=== PATIENT | female | born 1990 | race Caucasian/White ===

== ENCOUNTER 2019-08-04 14:13 | Emergency (ER) | payer OTHER ==
[~2019-08-04] VITALS: Ht 167.6 cm; Wt 113.4 kg
--- OUTSIDE RECORDS SUMMARY | 2019-08-05 18:14 | XMS ---
PreManage Notification: ALEXANDRE GARCIA Security Stogy Roller Events No recent Security Events currently on file CRITERIA MET - [facility] Has Care Guidelines CARE PROVIDERS There are no care providers on record at this time. Guidelines Source: [email or web address] [place] Guidelines Date: 12/28/2018 Care Coordination: Mental health services provided by [email or web address].\T\nbsp; Please contact [email or web address] with mental health concerns.\T\nbsp; [facility] [phone]\T\ nbsp; Cash: [phone]. E.D. VISIT COUNT (12 MO.) 1 [facility] 1 [facility] TOTAL 2 NOTE: Visits indicate total known visits. ED/UCC VISIT TRACKING (12 MO.) 08/04/2019 14:14 [facility] Arevalo TYPE: Emergency COMPLAINT: - M[facility]2019 [facility] DIAGNOSES: - Facial Swelling - confusion, facial swelling - Cutaneous abscess of face INPATIENT VISIT TRACKING (12 MO.) [facility] DIAGNOSES: - Bipolar disorder, currently in remission, most recent episode - Synovitis and tenosynovitis, unspecified - Pain in left finger(s) - Elevated white blood cell count, unspecified [email or web address]
== END 2019-08-05 18:05 ==
LOC: ED 14:13
DX: F23 Brief psychotic disorder (principal); F19.10 Other psychoactive substance abuse, uncomplicated; F25.9 Schizoaffective disorder, unspecified
CPT/HCPCS: 80053; 80176; 81001; 84443; 84703; 85025; 99285; G0480; Q0163; U0002

== ENCOUNTER 2020-11-15 22:11 | Emergency (ER) | payer OTHER ==
[~2020-11-15] VITALS: Ht 167.6 cm; Wt 113.4 kg
[2020-11-15] MEDS ORDERED: OLANZAPINE2.5 MG PO (23:38)
[2020-11-15] MEDS ORDERED: PRAZOSIN HCL1 MG PO (23:38)
[2020-11-15] MEDS ORDERED: SERTRALINE HCL100 MG PO (23:39)
== END 2020-11-16 03:47 | disposition home or self-care (01) ==
LOC: ED 22:11
DX: S63.613A Unspecified sprain of left middle finger, initial encounter (principal); W23.0XXA Caught, crushed, jammed, or pinched between moving objects, initial encounter; F17.200 Nicotine dependence, unspecified, uncomplicated; Z79.52 Long term (current) use of systemic steroids; Z79.899 Other long term (current) drug therapy; R20.2 Paresthesia of skin
CPT/HCPCS: 73130; 99284-25

== ENCOUNTER 2021-06-07 10:40 | Emergency (ER) | payer OTHER ==
[~2021-06-07] VITALS: Ht 167.6 cm; Wt 129.7 kg
[~2021-06-07 10:40] MED LIST: OLANZAPINE2.5 MG PO; PRAZOSIN HCL1 MG PO; SERTRALINE HCL100 MG PO
[2021-06-07] MEDS ORDERED: NAPROXEN500 MG PO (11:41)
[2021-06-07] MEDS ORDERED: VITAMIN C1000 MG PO (11:41)
[2021-06-07] MEDS ORDERED: MINIPRESS2 MG PO (11:42)
[2021-06-07] MEDS ORDERED: ACETAMINOPHEN500 MG PO (11:43)
[2021-06-07] MEDS ORDERED: PRENATAL VITAM1 EACH PO (12:31)
== END 2021-06-07 12:46 | disposition home or self-care (01) ==
LOC: ED 10:40
DX: O99.891 Other specified diseases and conditions complicating pregnancy (principal); M54.50 Low back pain, unspecified; F17.200 Nicotine dependence, unspecified, uncomplicated; Z79.899 Other long term (current) drug therapy
CPT/HCPCS: 81001; 84703; 99284

== ENCOUNTER 2022-01-23 00:04 | Inpatient (IN) | payer OTHER ==
[~2022-01-23] VITALS: Ht 167.6 cm; Wt 128.8 kg
[~2022-01-23 00:04] MED LIST changes: +ACETAMINOPHEN500 MG PO; +MINIPRESS2 MG PO; +NAPROXEN500 MG PO; +PRENATAL VITAM1 EACH PO; +VITAMIN C1000 MG PO
--- NOTE | 2022-01-23 11:52 | PR ---
[facility] [address] [facility] [place], [place] [address] Signed Progress Notes IP Datetime Report Generated by CPN: 01/23/2022 11:52 PROGRESS NOTES: [id number] Impression: Normal Progression of Labor Plan: Continue Present Management; Anticipate Vaginal Delivery VITAL SIGNS: [id number] Vital Signs: Reviewed; Within Normal Limits EXAM: [id number] Dilatation: 1.0 Effacement: 25 Station: -3 Contractions: every 2-3 minutes MEMBRANES: [id number] Membranes Status: Intact Comments: Getting very uncomfortable with contractions; will have her try laboring in tub for a short while , then get get Epidural. Will try AROM after comfortable with Epidural. FETUS A: [id number] FHR Baseline: 135 Variability: Moderate 6-25bpm Accelerations: 15X15 FETUS B: [id number] Signing Physician: Edilberto Pacheco MD Copies: ~ *Electronically Signed* 01/23/22 1152 EDILBERTO PACHECO MD PATIENT NAME: ALEXANDRE GARCIA SARY PROGRESS NOTE DATE OF : 89 PHYSICIAN: EDILBERTO PACHECO MD RPT #: [id number] REPORT IS CONFIDENTIAL AND NOT TO BE RELEASED WITHOUT AUTHORIZATION
--- NOTE | 2022-01-23 16:59 | PR ---
[facility] [address] [facility] [place], [place] [address] Signed Progress Notes IP Datetime Report Generated by CPN: 01/23/2022 16:58 PROGRESS NOTES: [id number] Impression: Normal Progression of Labor Plan: Continue Present Management; Anticipate Vaginal Delivery VITAL SIGNS: [id number] Vital Signs: Reviewed; Within Normal Limits EXAM: [id number] Dilatation: 9.0 Effacement: Swollen Station: -1 Contractions: every 2-3 minutes MEMBRANES: [id number] Membranes Status: Ruptured Comments: Patient comfortable with Epidural. 9 cm, with anterior lip per RN. Will try different positions, expect to be able to start pushing soon. FETUS A: [id number] FHR Baseline: 135 Variability: Moderate 6-25bpm Accelerations: 15X15 FETUS B: [id number] Signing Physician: Shelly Pacheco MD Copies: ~ *Electronically Signed* 01/23/22 5738 SHELLY PACHECO MD PATIENT NAME: ALEXANDRE GARCIA PROGRESS NOTE DATE OF : [birth year] PHYSICIAN: SHELLY PACHECO MD RPT #: [id number] REPORT IS CONFIDENTIAL AND NOT TO BE RELEASED WITHOUT AUTHORIZATION
--- NOTE | 2022-01-23 18:17 | PR ---
[facility] [address] [facility] [place], [place] [address] Signed PP Progress Notes Datetime Report Generated by CPN: 01/23/2022 18:17 SUBJECTIVE: [id number] Pain: Within Normal Limits Nausea/Vomiting: Denies Vital Signs: [id number] Vital Signs: Reviewed Notable Details: some elevated BP's right after delivery EXAM: Ongoing Abdomen/Uterus: Normal Lochia: Normal IMPRESSION/PLAN/PROCEDURES: [id number] Progress Notes: No AN's, no vision changes. Since patient was on Prazosin for night terrors, but also as antihypertensive and has elected to stop Prozosin in order to breastfeed, will start Procardia for hypertension. Discussed with patient. Also restart Sertraline and Olanzapine. Signing Physician: Shelly Pacheco MD Copies: ~ *Electronically Signed* 01/23/221816 SHELLY PACHECO MD PATIENT NAME: ALEXANDRE GARCIA PROGRESS NOTE DATE OF : [birth year] PHYSICIAN: SHELLY PACHECO MD RPT #: [id number] REPORT IS CONFIDENTIAL AND NOT TO BE RELEASED WITHOUT AUTHORIZATION
--- NOTE | 2022-01-24 09:23 | PR ---
[facility] [address] [facility] [place], [place] [address] Signed PP Progress Notes Datetime Report Generated by CPN: 01/24/2022 09:23 SUBJECTIVE: [id number] Pain: Within Normal Limits Nausea/Vomiting: Denies Vital Signs: [id number] Vital Signs: Reviewed; Within Normal Limits Notable Details: some elevated BP's right after delivery EXAM: Ongoing Abdomen/Uterus: Normal Lochia: Normal Extremities: Normal IMPRESSION/PLAN/PROCEDURES: [id number] Impression: Normal Progression Plan: Discharge Procedures: None Progress Notes: Doing well, without complaint. Baby transferred to [facility] for respiratory support, but now off O2, doing well. Patient anxious to leave to go be with baby in NICU. Signing Physician: Shelly Pacheco MD Copies: ~ *Electronically Signed* 01/24/22922 SHELLY PACHECO MD PATIENT NAME: ALEXANDRE GARCIA PROGRESS NOTE DATE OF : [birth year] PHYSICIAN: SHELLY PACHECO MD RPT #: [id number] REPORT IS CONFIDENTIAL AND NOT TO BE RELEASED WITHOUT AUTHORIZATION
== END 2022-01-24 13:09 | disposition home or self-care (01) | DRG 807 ==
LOC: FBC 00:04
PROVIDERS: ADMIT General Practice; ATTEND General Practice
PROC: 10E0XZZ Delivery of Products of Conception, External Approach (ICD-10-PCS; principal; 2022-01-23)
PROC: 10E0XZZ Delivery of Products of Conception, External Approach (ICD-10-PCS; 2022-01-23)
PROC: 3E0DXGC Introduction of Other Therapeutic Substance into Mouth and Pharynx, External Approach (ICD-10-PCS; 2022-01-23)
PROC: 3E0R3BZ Introduction of Anesthetic Agent into Spinal Canal, Percutaneous Approach (ICD-10-PCS; 2022-01-23)
PROC: 00HU33Z Insertion of Infusion Device into Spinal Canal, Percutaneous Approach (ICD-10-PCS; 2022-01-23)
DX: O10.92 Unspecified pre-existing hypertension complicating childbirth (principal); Z37.0 Single live birth; Z3A.38 38 weeks gestation of pregnancy; O99.344 Other mental disorders complicating childbirth; F41.9 Anxiety disorder, unspecified; F32.A Depression, unspecified; Z79.899 Other long term (current) drug therapy; O99.214 Obesity complicating childbirth; E66.9 Obesity, unspecified; F25.9 Schizoaffective disorder, unspecified
CPT/HCPCS: 36415; 85027; 85060; 86850; 86900; 86901; A9270; J2590; J7121

== ENCOUNTER 2022-07-20 21:54 | Emergency (ER) | payer OTHER ==
[~2022-07-20] VITALS: Ht 167.6 cm; Wt 130.0 kg
[~2022-07-20 21:54] MED LIST changes: +BENADRYL ALLERG25 MG PO; +BENADRYL25 MG PO; +CLARITIN10 M2 PO; +EPIPEN 2-P0.3 MG/0.3 IM; +IBUPROFEN200 M1 PO; +NIFEDIPINE ER30 M1 PO; +PEPCID20 MG PO; +PREDNISONE20 MG PO
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
[2022-07-20 23:01] VITALS: BP 177/114
== END 2022-07-20 23:02 | disposition home or self-care (01) ==
LOC: ED 21:54
DX: L50.9 Urticaria, unspecified (principal); I10 Essential (primary) hypertension; Z87.891 Personal history of nicotine dependence; Z79.52 Long term (current) use of systemic steroids; Z79.899 Other long term (current) drug therapy

== ENCOUNTER 2022-07-24 16:52 | Emergency (ER) | payer OTHER ==
[~2022-07-24] VITALS: Ht 167.6 cm; Wt 129.3 kg
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
[2022-07-24] MEDS ORDERED: DIAZEPAM2 MG PO (20:56)
[2022-07-24 21:49] VITALS: BP 146/84
== END 2022-07-24 21:51 | disposition home or self-care (01) ==
LOC: ED 16:52
DX: M62.838 Other muscle spasm (principal); T38.0X5A Adverse effect of glucocorticoids and synthetic analogues, initial encounter; I10 Essential (primary) hypertension; Z87.891 Personal history of nicotine dependence; Z79.899 Other long term (current) drug therapy
CPT/HCPCS: 36415; 80053; 83735; 85025; 86140; J3360; J7121

== ENCOUNTER 2023-04-02 01:34 | Emergency (ER) | payer OTHER ==
[~2023-04-02] VITALS: Ht 167.6 cm; Wt 107.1 kg
[~2023-04-02 01:34] MED LIST changes: +DIAZEPAM2 MG PO
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
[2023-04-02 02:27] VITALS: BP 147/88
== END 2023-04-02 02:28 | disposition home or self-care (01) ==
LOC: ED 01:34
DX: K13.0 Diseases of lips (principal); I10 Essential (primary) hypertension; Z87.891 Personal history of nicotine dependence; Z79.899 Other long term (current) drug therapy
CPT/HCPCS: 99282

== ENCOUNTER 2023-04-14 17:09 | Emergency (ER) | payer OTHER ==
[~2023-04-14] VITALS: Ht 167.6 cm; Wt 107.1 kg
[2023-04-14 17:41] LABS: BILIRUBIN, URINE NEGATIVE (negative); BLOOD/HGB, URINE NEGATIVE (Negative); KETONE, URINE NEGATIVE (Negative); LEUK ESTERASE, URINE NEGATIVE (negative); NITRITE, URINE NEGATIVE (negative); PH, URINE 5.5 (5-7)
[2023-04-14 17:51] LABS: PREGNANCY TEST, URINE NEGATIVE (NEG)
[2023-04-14 18:04] LABS: AMPHETAMINES, URINE NEGATIVE (NEGATIVE); BARBITURATES, URINE NEGATIVE (NEGATIVE); BENZODIAZEPINE, URINE NEGATIVE (NEGATIVE); BUPRENORPHINE, URINE NEGATIVE (NEGATIVE); CANNABINOID, URINE POSITIVE (NEGATIVE); COCAINE, URINE NEGATIVE (NEGATIVE); ECSTASY, URINE NEGATIVE (NEGATIVE); FENTANYL, URINE NEGATIVE (NEGATIVE); METHADONE, URINE NEGATIVE (NEGATIVE); OPIATES, URINE NEGATIVE (NEGATIVE); OXYCODONE, URINE NEGATIVE (NEGATIVE); PHENCYCLIDINE, URINE NEGATIVE (NEGATIVE)
[2023-04-14 19:06] VITALS: BP 133/80
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
[2023-04-15] MEDS ORDERED: VISTARIL25 MG PO (14:05)
[2023-04-15] MEDS ORDERED: SERTRALINE HCL100 MG PO (14:05)
[2023-04-15] MEDS ORDERED: ZYPREXA2.5 MG PO (14:05)
== END 2023-04-14 19:06 | disposition home or self-care (01) ==
LOC: ED 17:09
PROVIDERS: Emergency Medicine
DX: R41.89 Other symptoms and signs involving cognitive functions and awareness (principal); I10 Essential (primary) hypertension; F20.9 Schizophrenia, unspecified; Z87.891 Personal history of nicotine dependence; Z79.899 Other long term (current) drug therapy
CPT/HCPCS: 80307; 81003; 84703; 99284

== ENCOUNTER 2023-04-15 13:31 | Emergency (ER) | payer OTHER ==
[~2023-04-15] VITALS: Ht 167.6 cm; Wt 107.0 kg
--- NOTE | ~2023-04-15 | EKG ---
[facility] [address] [facility] [place], [place] [address] Draft EK completed, results pending confirmation PATIENT NAME: ALEXANDRE GARCIA Electrocardiogram DATE OF : 89 PHYSICIAN: PRELIMINARY REPORT #: [id number] REPORT IS CONFIDENTIAL AND NOT TO BE RELEASED WITHOUT AUTHORIZATION
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
[2023-04-15] MEDS ORDERED: SERTRALINE HCL100 MG PO (14:05)
[2023-04-15] MEDS ORDERED: VISTARIL25 MG PO (14:05)
[2023-04-15] MEDS ORDERED: ZYPREXA2.5 MG PO (14:05)
[2023-04-15 14:15] VITALS: BP 121/68
== END 2023-04-15 14:10 | disposition home or self-care (01) ==
LOC: ED 13:31
DX: F25.9 Schizoaffective disorder, unspecified (principal); F41.9 Anxiety disorder, unspecified; I10 Essential (primary) hypertension; Z79.899 Other long term (current) drug therapy; Z87.891 Personal history of nicotine dependence
CPT/HCPCS: 93005; 93010; 99283-25; A9270

== ENCOUNTER 2023-04-24 18:13 | Emergency (ER) | payer OTHER ==
[~2023-04-24] VITALS: Ht 167.6 cm; Wt 104.8 kg
[~2023-04-24 18:13] MED LIST changes: +VISTARIL25 MG PO; +ZYPREXA2.5 MG PO
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
[2023-04-24 19:48] LABS: AMPHETAMINES, URINE NEGATIVE (NEGATIVE); BARBITURATES, URINE NEGATIVE (NEGATIVE); BENZODIAZEPINE, URINE NEGATIVE (NEGATIVE); BUPRENORPHINE, URINE NEGATIVE (NEGATIVE); CANNABINOID, URINE POSITIVE (NEGATIVE); COCAINE, URINE NEGATIVE (NEGATIVE); ECSTASY, URINE NEGATIVE (NEGATIVE); FENTANYL, URINE NEGATIVE (NEGATIVE); METHADONE, URINE NEGATIVE (NEGATIVE); OPIATES, URINE NEGATIVE (NEGATIVE); OXYCODONE, URINE NEGATIVE (NEGATIVE); PHENCYCLIDINE, URINE NEGATIVE (NEGATIVE)
[2023-04-24] MEDS ORDERED: NARCAN4 MG NAS (20:13)
[2023-04-24 20:36] VITALS: BP 120/83
== END 2023-04-24 20:34 | disposition home or self-care (01) ==
LOC: ED 18:13
PROVIDERS: Emergency Medicine
DX: F20.9 Schizophrenia, unspecified (principal); Z87.891 Personal history of nicotine dependence; I10 Essential (primary) hypertension; Z79.899 Other long term (current) drug therapy; F15.10 Other stimulant abuse, uncomplicated
CPT/HCPCS: 80307; 99284

== ENCOUNTER 2024-11-11 10:52 | Emergency (ER) | payer OTHER ==
[~2024-11-11] VITALS: Ht 167.6 cm; Wt 115.0 kg
[~2024-11-11 10:52] MED LIST changes: +BACTRIM DS TAB1 EACH PO; +NARCAN4 MG NAS
[2024-11-11] MEDS ORDERED: LORATADINE10 MG PO (11:05)
[2024-11-11] MEDS ORDERED: OLANZapine 10 MG TABDIS PO ONE (11:45)
[2024-11-11 12:04] LABS: BASOPHILS 0.5 % (0.1-1.2); EOSINOPHILS 1.6 % (0.7-5.8); LYMPHOCYTES 18.9 % (19.3-51.7); MCH 28.9 PG (25.6-32.2); MCHC 33.5 g/dL (32.2-35.5); MCV 86.2 fL (79.4-94.8); MONOCYTES 6.9 % (4.7-12.5); NEUTROPHILS 71.9 % (34.0-71.1); RBC 4.64 M/uL (3.93-5.22)
[2024-11-11 12:16] LABS: ALT (SGPT) 16.0 U/L (14-59); AST (SGOT) 12.0 U/L (15-37); GLOMERULAR FILTRATION RATE,EST 123.0 mL/min (>60); PROTEIN, TOTAL 7.8 g/dL (6.4-8.2); UREA NITROGEN 11.0 mg/dL (7-18)
[2024-11-11 12:37] VITALS: BP 138/81
== END 2024-11-11 12:35 | disposition home or self-care (01) ==
LOC: ED 10:52
PROVIDERS: Emergency Medicine
DX: F15.151 Other stimulant abuse with stimulant-induced psychotic disorder with hallucinations (principal); K03.81 Cracked tooth; I10 Essential (primary) hypertension; Z87.891 Personal history of nicotine dependence; Z79.899 Other long term (current) drug therapy
CPT/HCPCS: 36415; 80053; 85025; 99285; A9270

== ENCOUNTER 2024-11-15 15:11 | Emergency (ER) | payer OTHER ==
[~2024-11-15] VITALS: Ht 167.6 cm; Wt 115.0 kg
[~2024-11-15 15:11] MED LIST changes: +LORATADINE10 MG PO
--- OUTSIDE RECORDS SUMMARY | 2024-11-15 15:18 | XMS ---
PreManage Notification: ALEXANDRE GARCIA Security Director Of Neighborhood Service Center Events No recent Security Events currently on file CRITERIA MET - [facility] - 2 Visits in 30 Days CARE PROVIDERS -, [facility] Dentist: Box Car Bracer Current [place] PHONE: [phone] -[place]- Dentist: Box Car Bracer Current [facility] PHONE: [phone] Alayna Peterson Physician Customer Account Coordinator Sunny VALDES PHONE: [phone] Care Guidelines exist for the following facilities: [facility] ( 12/[facility] [place] VISIT COUNT (12 MO.) 2 [facility] [place] TOTAL 2 NOTE: Visits indicate total known visits. 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
[2024-11-15] MEDS ORDERED: HALOPERIDOL LACTATE 5 MG/ML VIAL IM ONE (15:45)
[2024-11-15] MEDS ORDERED: LORazepam 2 MG/ML VIAL IM ONE ×2 (15:45→22:30)
[2024-11-15] MEDS ORDERED: SERTRALINE HCL200 MG PO (15:53)
[2024-11-15 16:05] LABS: BASOPHILS 0.4 % (0.1-1.2); EOSINOPHILS 0.5 % (0.7-5.8); LYMPHOCYTES 14.5 % (19.3-51.7); MCH 28.7 PG (25.6-32.2); MCHC 33.3 g/dL (32.2-35.5); MCV 86.2 fL (79.4-94.8); MONOCYTES 5.3 % (4.7-12.5); NEUTROPHILS 78.9 % (34.0-71.1); RBC 4.70 M/uL (3.93-5.22)
[2024-11-15 16:29] LABS: ALCOHOL, MEDICAL <3 ng/dL (<3); ALT (SGPT) 17 U/L (14-59); AST (SGOT) 16 U/L (15-37); GLOMERULAR FILTRATION RATE,EST 82 mL/min (>60); PROTEIN, TOTAL 8.2 g/dL (6.4-8.2); TSH, 3RD GENERATION 0.616 uIU/mL (0.358-3.740); UREA NITROGEN 15 mg/dL (7-18)
[2024-11-15] MEDS ORDERED: PROCARDIA XL30 MG PO (16:51)
[2024-11-15 17:07] LABS: BLOOD/HGB, URINE NEGATIVE (Negative); KETONE, URINE NEGATIVE (Negative); LEUK ESTERASE, URINE NEGATIVE (negative); NITRITE, URINE NEGATIVE (negative)
[2024-11-15 17:21] LABS: AMPHETAMINES, URINE NEGATIVE (NEGATIVE); BARBITURATES, URINE NEGATIVE (NEGATIVE); BENZODIAZEPINE, URINE NEGATIVE (NEGATIVE); CANNABINOID, URINE POSITIVE (NEGATIVE); COCAINE, URINE NEGATIVE (NEGATIVE); ECSTASY, URINE NEGATIVE (NEGATIVE); FENTANYL, URINE NEGATIVE (NEGATIVE); METHADONE, URINE NEGATIVE (NEGATIVE); OPIATES, URINE NEGATIVE (NEGATIVE); OXYCODONE, URINE NEGATIVE (NEGATIVE); PHENCYCLIDINE, URINE NEGATIVE (NEGATIVE)
[2024-11-15] MEDS ORDERED: LORazepam 2 MG/ML VIAL ONE (22:24)
[2024-11-15] MEDS ORDERED: OLANZapine 10 MG VIAL ONE (22:24)
[2024-11-15] MEDS ORDERED: OLANZapine 10 MG VIAL IM ONE (22:30)
[2024-11-16] MEDS ORDERED: SERTRALINE HCL 100 MG TAB PO ONE (09:45)
[2024-11-16] MEDS ORDERED: NIFEdipine 10 MG CAP PO ONE (09:45)
[2024-11-16] MEDS ORDERED: OLANZapine 10 MG TABDIS PO ONE (09:45)
[2024-11-16] MEDS ORDERED: LORATADINE 10 MG TAB PO ONE (09:45)
[2024-11-16] MEDS ORDERED: OLANZAPINE5 MG PO (09:53)
[2024-11-16 11:13] VITALS: BP 122/84
== END 2024-11-16 11:14 | disposition home or self-care (01) ==
LOC: ED 15:11
PROVIDERS: Emergency Medicine
DX: F23 Brief psychotic disorder (principal); E87.6 Hypokalemia; I10 Essential (primary) hypertension; Z87.891 Personal history of nicotine dependence; Z79.899 Other long term (current) drug therapy
CPT/HCPCS: 36415; 80053; 80307; 81003; 84443; 84703; 85025; 96372; 99285-25; A9270; G0480; J1200; J1630; J2060